=== PATIENT | male | born 1995 | race Two or more races ===

== ENCOUNTER → 2016-11-25 | Outpatient (CLI) | payer OTHER ==
--- NOTE | 2016-11-25 19:39 | REP ---
HISTORY: Pain after trauma. FINDINGS: No acute fracture or destructive osseous lesion. The mortise is intact. Signed by Wesley Vega DO 11/25/2016 07:44 P
== END ==
LOC: M LRY 19:03
PROVIDERS: ATTEND Nurse Practitioner Family
DX: S99.912A Unspecified injury of left ankle, initial encounter (principal); X58.XXXA Exposure to other specified factors, initial encounter; Y92.89 Other specified places as the place of occurrence of the external cause; Y93.89 Activity, other specified; Y99.8 Other external cause status
CPT/HCPCS: 73610; G0463

== ENCOUNTER 2021-04-23 19:57 | Emergency (ER) | payer OTHER ==
[~2021-04-23] VITALS: Ht 167.6 cm; Wt 73.6 kg
[2021-04-23 21:30] VITALS: BP 95/44
== END 2021-04-23 21:38 | disposition home or self-care (01) ==
LOC: M ED 19:57
DX: R00.2 Palpitations (principal); R94.31 Abnormal electrocardiogram [ECG] [EKG]

== ENCOUNTER → 2023-08-28 | Outpatient (CLI) | payer OTHER | LOC: M WUC 11:23 | PROVIDERS: ATTEND Student in an Organized Health Care Education/Training Program | DX: M25.531 Pain in right wrist (principal) ==